=== PATIENT | female | born 1990 ===

== ENCOUNTER 2017-09-24 21:21 | Emergency (ER) | payer BC ==
[2017-09-24 21:48] VITALS: BP 115/81; PULSE 96; RESP 20; TEMP 98.2; O2SAT 100
[2017-09-24] MEDS ORDERED: Tetanus/Diphtheria Toxoids 0.5 ml Syringe IM ONE ×2 (21:52→21:57)
--- NOTE | 2017-09-24 22:03 | C.PDOC ---
History Of Present Illness 26 year old female presents to the ED for evaluation of small abrasion to her right index finger. Patient reports she accidentally scraped her finger with the corner of a metal counter. Patient presents to the ED requesting a tetanus booster. Patient denies fever, chill, weakness, numbness. Time Seen by Provider: 09/24/17 21:37 Chief Complaint (Nursing): Abnormal Skin Integrity History Per: Patient History/Exam Limitations: no limitations Onset/Duration Of Symptoms: Hrs Current Symptoms Are (Timing): Still Present Location Of Injury: Right: Hand (index finger) Quality Of Symptoms: Painful Recent travel outside of the [place]: No Additional History Per: Patient Past Medical History Reviewed: Historical Data, Nursing Documentation, Vital Signs Vital Signs: Last Vital Signs Temp 98.2 F 09/24/17 21:24 Pulse 96 H 09/24/17 21:24 Resp 20 09/24/17 22:04 BP 115/81 09/24/17 21:24 Pulse Ox 100 09/24/17 22:55 - Medical History PMH: Hypothyroidism Surgical History: No Surg Hx Family History: States: No Known Family Hx - Social History Hx Alcohol Use: No Hx Substance Use: No - Immunization History Hx Tetanus Toxoid Vaccination: No Hx Influenza Vaccination: No Hx Pneumococcal Vaccination: No Review Of Systems Constitutional: Negative for: Fever Musculoskeletal: Positive for: Hand Pain Skin: Positive for: Other (abrasion, Rt index) Neurological: Negative for: Weakness, Numbness Physical Exam - Physical Exam Appears: Non-toxic, No Acute Distress Skin: Normal Color, Warm, Dry Head: Atraumatic, Normacephalic Eye(s): bilateral: Normal Inspection, PERRL Extremity: Normal ROM, No Tenderness, Capillary Refill (< 2 seconds), No Deformity, No Swelling, Other (small abrasion on right index finger. No active bleeding.) Pulses: Left Radial: Normal, Right Radial: Normal Neurological/Psych: Oriented x3, Normal Motor, Normal Sensation Gait: Steady ED Course And Treatment O2 Sat by Pulse Oximetry: 100 (ON RA) Pulse Ox Interpretation: Normal Progress Note: Plan: - tetanus booster. Patient is resting comfortably, and is in no acute distress. Patient was instructed to follow up with PMD in 1-2 days for further evaluation. 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 - Scribe Statement The provider has reviewed the documentation as recorded by the Scribe Roberto Mendiola All medical record entries made by the Scribe were at my direction and personally dictated by me. I have reviewed the chart and agree that the record accurately reflects my personal performance of the history, physical exam, medical decision making, and the department course for this patient. I have also personally directed, reviewed, and agree with the discharge instructions and disposition.
== END 2017-09-24 22:04 | disposition home or self-care (01) ==
LOC: C.ER 21:21
DX: S60.410A Abrasion of right index finger, initial encounter (principal); W22.8XXA Striking against or struck by other objects, initial encounter; Z23 Encounter for immunization; E03.9 Hypothyroidism, unspecified